=== PATIENT | female | born 1935 | race Caucasian/White ===

== ENCOUNTER 2018-10-22 20:58 | Emergency (ER) | payer MEDICARE, BC ==
[~2018-10-22] VITALS: Wt 63.7 kg
--- NOTE | ~2018-10-22 | EKG ---
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
[2018-10-22] MEDS ORDERED: PROTONIX20 MG PO (21:02)
[2018-10-22] MEDS ORDERED: PRAVACHOL20 MG PO (21:02)
[2018-10-22 21:20] LABS: BASO % 0.5 % (0.0-1.0); EOS % 0.6 % (1.0-4.0); HEMATOCRIT 40.5 % (37.0-47.0); HEMOGLOBIN 13.8 g/dl (12.0-16.0); LYMPH # 2.5 10*3/uL (1.3-4.4); LYMPH % 39.1 % (27.0-41.0); MEAN CELL VOLUME 90.4 fl (81.0-99.0); MEAN CORPUSCULAR HGB 30.8 pg (27.0-31.0); MEAN CORPUSCULAR HGB CONC 34.1 g/dl (33.0-37.0); MEAN PLATELET VOLUME 11.5 fl (9.6-12.3); MONO # 0.5 10*3/uL (0.1-1.0); MONO % 8.3 % (3.0-9.0); NEUT # 3.2 10*3/uL (2.3-7.9); NEUT % 51.3 % (47.0-73.0); PLATELET COUNT AUTOMATED 186 10*3/uL (130-400); RED BLOOD COUNT 4.48 10*6/uL (4.10-5.10); WHITE BLOOD COUNT 6.3 10*3/uL (4.8-10.8)
[2018-10-22 21:30] LABS: ACT PARTIAL THROMBO TIME 23.8 SECONDS (20.0-32.1); INTERNATIONAL NORM RATIO 0.9 (2.0-3.5)
[2018-10-22 21:36] LABS: ALKALINE PHOSPHATASE 96 U/L (45-117); BUN 13 mg/dl (7-24); CHLORIDE 104 mmol/L (98-107); CREATININE 0.87 mg/dL (0.55-1.02); POTASSIUM 3.2 mmol/L (3.5-5.1); SGOT/AST 28 IU/L (3-35); SGPT/ALT 56 U/L (12-78); SODIUM 138 mmol/L (136-145)
[2018-10-22 21:37] LABS: TROPONIN I < 0.015 ng/ml (<0.045)
[2018-10-22] MEDS ORDERED: GOOD NEIGHBOR M25 M1 PO (23:16)
[2018-10-22] MEDS ORDERED: ONDANSETRON4 MG SL (23:16)
== END 2018-10-23 00:09 | disposition home or self-care (01) ==
LOC: ED 20:58
PROVIDERS: Student in an Organized Health Care Education/Training Program
DX: R42 Dizziness and giddiness (principal); R11.2 Nausea with vomiting, unspecified; R55 Syncope and collapse; Z79.899 Other long term (current) drug therapy